=== PATIENT | female | born 1990 | race Caucasian/White ===

== ENCOUNTER → 2019-10-03 11:51 | Outpatient (BNVA) | payer SELFPAY | PROVIDERS: Family Provider Nurse Practitioner; PCP Nurse Practitioner; Visit Provider Nurse Practitioner | DX: D64.9 Anemia, unspecified (principal); J06.9 Acute upper respiratory infection, unspecified | CPT/HCPCS: 85025 ==

== ENCOUNTER → 2020-02-19 11:16 | Outpatient (BNVA) | payer SELFPAY | PROVIDERS: Family Provider Nurse Practitioner; PCP Nurse Practitioner; Visit Provider Nurse Practitioner Women's Health | DX: N93.9 Abnormal uterine and vaginal bleeding, unspecified (principal); Z12.4 Encounter for screening for malignant neoplasm of cervix | CPT/HCPCS: 84146; 84443; 84702; 85025; 88175 ==

== ENCOUNTER → 2020-03-08 14:25 | Outpatient (BNVA) | payer SELFPAY | PROVIDERS: Family Provider Nurse Practitioner; PCP Nurse Practitioner; Visit Provider Nurse Practitioner Women's Health | DX: N93.9 Abnormal uterine and vaginal bleeding, unspecified (principal) | CPT/HCPCS: 76830 ==

== ENCOUNTER → 2020-03-11 09:00 | Outpatient (BNVA) | payer SELFPAY | PROVIDERS: Family Provider Nurse Practitioner; PCP Nurse Practitioner; Visit Provider Nurse Practitioner Women's Health | DX: D64.9 Anemia, unspecified (principal); N93.9 Abnormal uterine and vaginal bleeding, unspecified; N85.2 Hypertrophy of uterus | CPT/HCPCS: 82728; 83550 ==

== ENCOUNTER → 2020-05-24 08:51 | Outpatient (BNVA) | payer SELFPAY | PROVIDERS: Family Provider Nurse Practitioner; PCP Nurse Practitioner; Visit Provider Nurse Practitioner Women's Health | DX: N85.2 Hypertrophy of uterus (principal) | CPT/HCPCS: 76830 ==

== ENCOUNTER → 2020-07-12 09:52 | Outpatient (BNVA) | payer SELFPAY | PROVIDERS: Family Provider Nurse Practitioner; PCP Nurse Practitioner; Visit Provider Nurse Practitioner Women's Health | DX: N85.2 Hypertrophy of uterus (principal); N93.9 Abnormal uterine and vaginal bleeding, unspecified; D64.9 Anemia, unspecified | CPT/HCPCS: 85025 ==

== ENCOUNTER 2021-01-15 19:45 | Emergency (ER) | payer SELFPAY ==
[2021-01-15 19:47] VITALS: BP 133/77; PULSE 100; RESP 17; TEMP 36.7; O2SAT 98; BMI 40.4
--- NOTE | 2021-01-15 20:16 | ED_ITS ---
HPI - Nausea/Vomiting/Diarrhea General: Chief complaint: Nausea/Vomiting/Diarrhea Stated complaint: n/v Time Seen by Provider: 01/15/21 19:57 History of Present Illness: HPI Narrative: Patient ate some cereal this morning and then around 3:00 she sat down to watch a movie and had sudden onset of vomiting and diarrhea several times and was happening at the same time. She has some mid abdominal pain that is more of a crampy type sensation she denies any specific lower pain it appears to be more at the umbilicus. Denies any fevers and also initially started with a headache she does have a history of migraines but says that the migraine had resolved. 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 She denies any urine complaints denies Review of Systems Narrative: General: denies fatigue, fever or chills HEENT: denies ear pain, denies nasal congestion, denies vision changes, denies sore throat Neck: denies masses or pain Resp: denies cough, denies shortness of breath, denies pleuritic pain Cardio: denies chest pain, denies edema GI: see hpi denies black/tarry or bloody stools : denies hematuria, denies dysuria Neuro: denies headache, denies dizziness, denies motor or sensory changes Musculoskeletal: denies pain, denies swelling Skin: denies rashes Psych: denies SI or HI Endocrine: denies thyroid symptoms, denies lymphadenopathy all over ROS reviewed and patient denies PFSH ED PFSH: Medical History (Updated 01/15/21 @ 22:01 by Amber Don DO) Anemia Genital herpes Migraine without aura Surgical History History of section 2 sections 2010 2011 History of tubal ligation 2012 Family History Mother Hypertension Unknown Colon cancer Maternal side Diabetes Paternal side Denies family history of Ovarian cancer Heart disease Hyperlipidemia Breast cancer Family history of thyroid problem Uterine cancer Stroke Social History Additional social history: - Tobacco use: Denies Alcohol use: Social Drug use: Denies Female Reproductive History: Date of last menstrual period: 09/28/19 Para: 3 Physical Exam Narrative: EXAM NARRATIVE: General: a/o/3, no distress Head: atraumatic HEENT: normal eyes, normal conjunctiva, normal hearing, normal external nose, normal mouth, mucous membranes moist Neck: FROM, trachea midline Chest: normal expansion, no gross deformities Resp: normal speech, no retractions, no accessory muscle use, CTA bilaterally Cardio: regular rate and rhythm and no murmur, no peripheral edema, normal peripheral pulses GI: soft, mild mid tender, no guarding normal BS, no RLQ pain : deferred Musculoskeletal: FROM, no pain or gross deformities Neuro: a/o appropriate for age, no gross motor or sensory deficitys, CN II-XII grossly intact, normal coordination, normal speech Skin: no rashes Psych: cooperative, normal mood and effect Course Vital Signs: Vital signs: Vital Signs Temperature 98.1 F 01/15/21 19:47 Pulse Rate 90 01/15/21 21:25 Respiratory Rate 18 01/15/21 21:25 Blood Pressure 126/82 01/15/21 21:25 Pulse Oximetry 99 01/15/21 21:25 MDM - Nausea/Vomiting/Diarrhea MDM Narrative: Medical decision making narrative: Patient denies eating out recently or anybody else being ill in the house this did happen suddenly so would be curious if it is viral and/or some type of gastroenteritis. Her white count was elevated so we will check a CT scan. Patient had no vomiting here in the emergency department she was given IV fluids she was smiling and feeling better Tolerated crackers and ice chips Medical Records: Attestation: I reviewed the patient's medical records. Lab Data: Attestation: I reviewed the patient's lab results. Labs: Lab Results 01/15/21 01/15/21 01/15/21 Range/Units 20:10 20:20 20:20 WBC 22.7 H (4.0-10.0) 10^3/ uL RBC 5.49 H (4.1-5.3) 10^6/u L Hgb 15.4 H (11.5-15.3) g/dL Hct 48.3 H (37.0-47.0) % MCV 88.0 (81-99) fL MCH 28.1 (28.0-34.0) pg MCHC 31.9 (30.0-36.0) g/dL RDW 12.4 (12.1-15.1) % Plt Count 295 (130-400) 10^3/c mm MPV 11.6 H (7.4-10.4) fL Neut % (Auto) 84.7 % Lymph % (Auto) 8.6 % [place] % (Auto) 5.7 % Eos % (Auto) 0.2 % Baso % (Auto) 0.4 % Neut # (Auto) 19.19 H (1.8-7.7) 10^3/u L Lymph # (Auto) 2.0 (0.8-4.8) 10^3/u L [place] # (Auto) 1.3 H (0.2-0.9) 10^3/u L Eos # (Auto) 0.1 (0.0-0.8) 10^3/u L Baso # (Auto) 0.1 (0.0-0.1) 10^3/u L Nucleated RBC % (a uto) 0 % Nucleated RBCs # 0.0 /100WBC Sodium 139 (136-145) mmol/L Potassium 3.6 (3.5-5.1) mmol/L Chloride 102 (98-107) mmol/L Carbon Dioxide 26 (22-29) mmol/L Anion Gap 14.6 (5-19) BUN 12 (6-20) mg/dL Creatinine 0.8 (0.5-0.9) mg/dL GFR Calculation 84.2 L (90-130) mL/min Glucose 106 (65-115) mg/dL Calculated Osmolal ity 288 (285-295) mOsm/k g Calcium 8.9 (8.5-10.5) mg/dL Total Bilirubin 0.3 (0.15-1.2) mg/dL AST 22 (0-32) U/L ALT 29 (0-33) U/L Alkaline Phosphata se 22 L (35-105) IU/L Total Protein 7.7 (6.6-8.7) g/dL Albumin 4.3 (3.5-5.2) g/dL Globulin 3.4 (1.3-4.6) g/dL Lipase 21 (13-60) U/L HCG, Qual Negative (Negative) Discharge Plan Discharge Patient Disposition: Home Clinical Impression: Gastroenteritis Condition: Stable Prescriptions: No Action ibuprofen [IBU] 800 mg tablet 800 mg PO Q6H PRNRF: 0 norethindrone acetate 5 mg tablet 5 mg PO DAILY Qty: 30 RF: 11 clindamycin HCl 300 mg capsule 300 mg PO TID 7 Days Qty: 21 RF: 0 Discharge Orders: Discharge ED (Routine); Ordered 01/15/21 Ordered By: Amber Don Referrals: Maryanne Puga, [employer] [Primary Care Provider] - Discharge Diet: Advance as tolerated and Clear Liquid Discharge Activity: Increase activity as tolerated Patient Instructions: Gastroenteritis (ED), Opioid Safety Activity Restrictions/Additional Instructions: Advance your diet as tolerated I would go with more clear liquids and some crackers for the next 12 to 24 hours return if you have increased pain if pain moves to the right lower quadrant vomiting worsening of symptoms you feel weak or dizzy fevers Thank you for choosing [facility] for your healthcare needs today. Please realize this is an emergency room and that we are providing you with a medical screening exam and this may not be complete and all inclusive of all the testing and or work up that you may need to determine your ailment or severity of your illness. It is very important that you follow up as instructed or that you return to the Emergency Department should you have concerns or if your condition changes or worsens in any way. Stand Alone Forms: Work/School Release Coding Level of Care Code ED Rn Lactation Consultant for Alisa Hernandez
[2021-01-15 20:28] LABS: HCG Qualitative Urine. Negative (Negative)
[2021-01-15] MEDS: sodium chloride 0.9% 1,000 ML 999 ML IV (20:28)
[2021-01-15] MEDS: ondansetron 2 mg/ML SDV 2 mL 4 MG IVP (20:28)
[2021-01-15 20:30] VITALS: BP 129/81; PULSE 108; RESP 18; O2SAT 99
[2021-01-15 20:30] LABS: Basophils # 0.1 10^3/uL (0.0-0.1); Basophils % 0.4 %; Eosinophils # 0.1 10^3/uL (0.0-0.8); Eosinophils % 0.2 %; Hematocrit 48.3 % (37.0-47.0); Hemoglobin 15.4 g/dL (11.5-15.3); Lymphocytes % 8.6 %; Mean Corpuscular HGB Conc 31.9 g/dL (30.0-36.0); Mean Corpuscular Hemoglobin 28.1 pg (28.0-34.0); Mean Platelet Volume 11.6 fL (7.4-10.4); Monocytes # 1.3 10^3/uL (0.2-0.9); Monocytes % 5.7 %; Neutrophils # 19.19 10^3/uL (1.8-7.7); Neutrophils % 84.7 %; Nucleated Red Blood Cells % 0 %; Platelet Count 295 10^3/cmm (130-400); Red Blood Count 5.49 10^6/uL (4.1-5.3); Red Cell Distribution Width 12.4 % (12.1-15.1); White Blood Count 22.7 10^3/uL (4.0-10.0)
--- NOTE | 2021-01-15 20:31 | CTR_ITS ---
PROCEDURE INFORMATION: Exam: CT Abdomen And Pelvis With Contrast Exam date and time: 01/15/2021 8:47 PM Age: 30 years old Clinical indication: Nausea and vomiting; Prior surgery; Surgery date: 6+ months; Surgery type: C-sect; Patient HX: C/O n/v/d; Additional info: Mid abd pain , vomiting, diarrhea TECHNIQUE: Imaging protocol: Computed tomography of the abdomen and pelvis with contrast. Radiation optimization: All CT scans at this facility use at least one of these dose optimization techniques: automated exposure control; mA and/or kV adjustment per patient size (includes targeted exams where dose is matched to clinical indication); or iterative reconstruction. Contrast material: OMNI 300; Contrast volume: 95 ml; Contrast route: INTRAVENOUS (IV); COMPARISON: CT abdomen pelvis wo con [id number] 11/21/2018 2:27 PM RADIATION DOSE METRICS: Total DLP (mGy-cm): 1804.42 FINDINGS: Liver: Normal. No mass. Gallbladder and bile ducts: Normal. No calcified stones. No ductal dilation. Pancreas: Normal. No ductal dilation. Spleen: Normal. No splenomegaly. Adrenal glands: Normal. No mass. Kidneys and ureters: Normal. No hydronephrosis. Stomach and bowel: Prominent fluid in the small bowel and colon without dilation suggestive of an enterocolitis. Appendix: No evidence of appendicitis. Intraperitoneal space: Unremarkable. No free air. No significant fluid collection. Vasculature: Unremarkable. No abdominal aortic aneurysm. Lymph nodes: Unremarkable. No enlarged lymph nodes. Urinary bladder: Unremarkable as visualized. Reproductive: Left ovary 2 cm cyst likely follicular in nature. Bones/joints: L5 vertebral body hemangioma. Soft tissues: Unremarkable. CT/CT abdomen pelvis w con* [id number] IMPRESSION: 1. Prominent fluid in the small bowel and colon without dilation suggestive of an enterocolitis. 2. L5 vertebral body hemangioma. 3. Left ovary 2 cm cyst likely follicular in nature. Radiation Dose CTDIVOL = (mGy): DLP = 1804.42 (mGy-cm)
[2021-01-15 20:47] LABS: Alanine Aminotransferase 29 U/L (0-33); Albumin Level 4.3 g/dL (3.5-5.2); Alkaline Phosphatase 22 IU/L (35-105); Anion Gap 14.6 (5-19); Aspartate Amino Transferase 22 U/L (0-32); Blood Urea Nitrogen 12 mg/dL (6-20); Calcium 8.9 mg/dL (8.5-10.5); Carbon Dioxide 26 mmol/L (22-29); Chloride 102 mmol/L (98-107); Globulin 3.4 g/dL (1.3-4.6); Glomerular Filtration Rate 84.2 mL/min (90-130); Glucose 106 mg/dL (65-115); Lipase 21 U/L (13-60); Osmolality Calculated 288 mOsm/kg (285-295); Potassium 3.6 mmol/L (3.5-5.1); Sodium 139 mmol/L (136-145); Total Bilirubin 0.3 mg/dL (0.15-1.2); Total Protein 7.7 g/dL (6.6-8.7)
[2021-01-15] MEDS: iohexol 300 mg/mL 100 mL Btl IV (21:06)
[2021-01-15 21:25] VITALS: BP 126/82; PULSE 90; RESP 18; O2SAT 99
[2021-01-15 22:02] LABS: Bilirubin Urine 1+ (Negative); Blood Urine 2+ (Negative); Glucose Urine UA Norm (Normal); Ketones Urine 1+ (Negative); Leukocyte Esterase Urine Negative (Negative); Nitrate Urine Negative (Negative); Protein Urine Trace (Negative); Urine Color Yellow (Yellow); Urobilinogen Urine 1 mg/dL (Negative); pH Urine 5 (5-7)
[2021-01-15 22:25] LABS: Bacteria Urine 4+ /hpf; Calcium Oxalate Crystals Urine 15-25 /hpf; Mucus Urine 2+ /hpf; RBC Urine 0-4 /hpf (0-2); Squamous Epithelial Cell Urine 25-40 /hpf (0-5); WBC Urine 0-4 /hpf (0-5)
[2021-01-15 22:26] LABS: Add Urine Culture? No; Amorphous Sediment Urine 3+ /hpf
[2021-01-15] MEDS: dicyclomine 10 mg Capsule 20 MG PO (22:35)
[2021-01-15] MEDS: promethazine 25 mg Tablet PO (22:35)
[2021-01-15 22:39] VITALS: BP 127/79; PULSE 89; RESP 16
== END 2021-01-15 22:40 | disposition home or self-care (01) ==
PROVIDERS: Emergency Provider Emergency Medicine; PCP Nurse Practitioner
DX: K52.9 Noninfective gastroenteritis and colitis, unspecified (principal)
CPT/HCPCS: 74177; 80053; 81001; 81025; 83690; 85025; 96374; 96375; 99284; J2405; J7030; Q0169; Q9967

== ENCOUNTER → 2021-01-21 10:44 | Outpatient (BNVA) | payer SELFPAY | PROVIDERS: PCP Nurse Practitioner; Visit Provider Nurse Practitioner Family | DX: R30.0 Dysuria (principal); R82.90 Unspecified abnormal findings in urine; N30.01 Acute cystitis with hematuria | CPT/HCPCS: 81000; 87077; 87086; 87184 ==

== ENCOUNTER → 2021-01-28 09:08 | Outpatient (BNVA) | payer SELFPAY | PROVIDERS: PCP Nurse Practitioner; Visit Provider Nurse Practitioner Family | DX: N39.0 Urinary tract infection, site not specified (principal) | CPT/HCPCS: 81000 ==

== ENCOUNTER → 2021-03-02 16:08 | Outpatient (BNVA) | payer SELFPAY | PROVIDERS: PCP Nurse Practitioner; Visit Provider Nurse Practitioner Family | DX: M25.539 Pain in unspecified wrist (principal); M25.639 Stiffness of unspecified wrist, not elsewhere classified; M25.431 Effusion, right wrist; M25.631 Stiffness of right wrist, not elsewhere classified; M25.531 Pain in right wrist | CPT/HCPCS: 73110 ==

== ENCOUNTER 2021-10-21 12:40 | Outpatient (CLI) | payer SELFPAY ==
--- NOTE | 2021-10-21 12:49 | XR_ITS ---
WS: [id number] ABDOMEN 1 VIEW(S) HISTORY: LEFT flank pain for 5 days. Hematuria. COMPARISON: CT abdomen and pelvis 01/15/2021 Normal bowel gas pattern. No suspicious calcifications or masses. No bone abnormality. XR/XR KUB [id number] IMPRESSION: Normal abdomen. No suspicious calcifications along the course of the LEFT urete r.
== END 2021-10-21 12:41 | disposition home or self-care (01) ==
LOC: RAD 12:47
PROVIDERS: PCP Nurse Practitioner; Visit Provider Nurse Practitioner
DX: R10.9 Unspecified abdominal pain (principal)
CPT/HCPCS: 74018; 81000

== ENCOUNTER → 2022-04-07 15:35 | Outpatient (BNVA) | payer SELFPAY | PROVIDERS: PCP Nurse Practitioner; Visit Provider Nurse Practitioner Women's Health | DX: N93.9 Abnormal uterine and vaginal bleeding, unspecified (principal) | CPT/HCPCS: 85025 ==

== ENCOUNTER → 2022-08-21 16:51 | Outpatient (BNVA) | payer SELFPAY | PROVIDERS: PCP Nurse Practitioner; Visit Provider Nurse Practitioner | DX: R10.9 Unspecified abdominal pain (principal) | CPT/HCPCS: 80053; 81000; 85025 ==

== ENCOUNTER 2022-09-05 12:47 | Emergency (ER) | payer SELFPAY ==
[2022-09-05] VITALS (7 sets, daily range): BP systolic 128–159; BP diastolic 61–82; PULSE 85–110; RESP 16–18; TEMP 37.4; O2SAT 94–98
--- NOTE | 2022-09-05 15:57 | CTR_ITS ---
PROCEDURE INFORMATION: Exam: CT Abdomen And Pelvis Without Contrast Exam date and time: 09/05/2022 4:55 PM Age: 32 years old Clinical indication: Other: Left pelvic; Prior surgery; Surgery date: 6+ months; Surgery type: Tubal, ; Patient HX: Left side pain x several weeks worsening in intensity; Additional info: Kidney stone TECHNIQUE: Imaging protocol: Computed tomography of the abdomen and pelvis without contrast. Sagittal and coronal reformatted images were created and reviewed. Radiation optimization: All CT scans at this facility use at least one of these dose optimization techniques: automated exposure control; mA and/or kV adjustment per patient size (includes targeted exams where dose is matched to clinical indication); or iterative reconstruction. COMPARISON: CT abdomen pelvis w con* [id number] 01/15/2021 9:04 PM RADIATION DOSE METRICS: Total DLP (mGy-cm): 562.88 FINDINGS: Limitations: Evaluation of solid organs and vasculature is limited without intravenous contrast. This is standard protocol for evaluation of possible urolithiasis. Lungs: Dependent atelectasis in the visualized lungs. Pleural spaces: No pleural effusion. Heart: Visualized cardiac chambers are unremarkable. Liver: The liver is unremarkable. Gallbladder and bile ducts: The gallbladder is unremarkable. No biliary ductal dilatation. Pancreas: The pancreas is unremarkable. No pancreatic ductal dilatation. Spleen: The spleen is unremarkable. Adrenal glands: The right and left adrenal glands are unremarkable. Kidneys and ureters: The right and left kidneys are unremarkable. The right and left ureters are unremarkable. No hydroureteronephrosis. No calcified urolithiasis. Stomach and bowel: Fluid within the small bowel and colon without evidence of bowel wall thickening. Appendix: The appendix is visualized and is unremarkable. No findings to suggest acute appendicitis. Intraperitoneal space: Small amount of free fluid in the cul-de-sac. No free intraperitoneal air. No loculated fluid collections to suggest an abscess. Vasculature: No evidence for aortic aneurysm. Lymph nodes: No lymphadenopathy. Urinary bladder: Unremarkable as visualized. Reproductive: The uterus is unremarkable. The right ovary is unremarkable. Stable dominant follicle in the left ovary measuring 1.7 x 1.3 cm (series 4, image 196). Bones/joints: Mild degenerative changes in the visualized spine. There is a vertebral body hemangioma at L5. Soft tissues: No acute abnormality in the extra-abdominal soft tissues. CT/CT abdomen pelvis wo con [id number] IMPRESSION: 1. Fluid within the small bowel and colon without evidence of bowel wall thickening. This may reflect viral gastroenteritis in the appropriate clinical situation. 2. Stable dominant follicle in the left ovary. 3. Small amount of free fluid in the cul-de-sac. 4. Incidental/nonacute findings are listed in the report.
[2022-09-05] MEDS: ondansetron 2 mg/ML SDV 2 mL 4 MG IVP (16:14)
[2022-09-05 16:15] LABS: Basophils % 0.1 %; Eosinophils % 0.1 %; Hematocrit 43.9 % (37.0-47.0); Hemoglobin 14.4 g/dL (11.5-15.3); Lymphocytes # 0.9 10^3/uL (0.8-4.8); Lymphocytes % 7.9 %; Mean Corpuscular HGB Conc 32.8 g/dL (30.0-36.0); Mean Corpuscular Hemoglobin 28.2 pg (28.0-34.0); Mean Corpuscular Volume 86.1 fl (81-99); Monocytes # 0.5 10^3/uL (0.2-0.9); Monocytes % 4.2 %; Neutrophils # 9.46 10^3/uL (1.8-7.7); Neutrophils % 87.4 %; Nucleated Red Blood Cells % 0 %; Platelet Count 237 10^3/cmm (130-400); Red Cell Distribution Width 12.3 % (12.1-15.1); White Blood Count 10.8 10^3/uL (4.0-10.0)
[2022-09-05] MEDS: ketorolac 30 mg/mL INJ IVP (16:15)
--- NOTE | 2022-09-05 16:15 | W.ED.ABDPA2 ---
HPI - Abdominal Pain General: Chief Complaint: Abdominal Pain Stated Complaint: abd pain Time Seen by Provider: 09/05/22 15:45 History of Present Illness: 30-year-old female who presents 2-day history of left flank pain. She describes the pain as sharp and stabbing, radiating into the left upper abdomen and left lower quadrant area. She has had onset of nausea and vomiting this morning, vomited multiple times today. She is also developed a low-grade fever today in addition. She denies dysuria or hematuria. No prior history of kidney stones. No diarrhea. Bowel movements have been normal. Associated Symptoms: Reports diarrhea, nausea and vomiting; Denies change in bowel habits, dysuria, heartburn, hematochezia and hematuria Related Data: Date of Last Menstrual Period: 08/10/22 Review of Systems Const: Denies: body aches, change in appetite, fatigue or change in sleep pattern Eyes: Denies: change in vision ENMT: Denies: odynophagia, hoarseness, nasal congestion or post nasal drip Card: Denies: chest pain or swelling of feet/ankles Resp: Denies: dyspnea, productive cough or non-productive cough GI: Reports: abdominal pain, nausea, vomiting and diarrhea; Denies: dysphagia, heartburn, change in bowel habits or hematochezia : Reports: urinary frequency and dysmenorrhea (with heavy flow); Denies: difficulty voiding, dysuria or hematuria Musc: Reports: other (left side ); Denies: neck pain, back pain or joint stiffness Skin/Breast: Denies: rash or pruritus Neuro: Denies: headache(s), difficulty walking or dizziness Psych: Denies: anxiety, depression, irritability or suicidal ideation Endo: Denies: hot flashes [place]/Lymph: Denies: easy bruising or enlarged lymph nodes All/Imm: Denies: seasonal rhinorrhea PFSH ED PFSH: Medical History Anemia Genital herpes Migraine without aura No pertinent past medical history Neg. hx: HTN, DM, thyroid, DVT/PE PCP: Surgical History History of section 2 sections 2010 2011 History of tubal ligation 2012 Family History Mother Hypertension Stroke Unknown Colon cancer Maternal side Diabetes Paternal side Grandmother Diabetes Paternal Denies family history of Ovarian cancer Heart disease Hyperlipidemia Breast cancer Family history of thyroid problem Uterine cancer Social History Smoking and tobacco status: never smoked Second hand smoke exposure: No Smoking risk assessment/counseling performed?: No Alcohol intake: unknown Desire information about alcohol rehabilitation?: No Counseling given: No Desire information about substance/drug rehabilitation?: No Counseling given: No Adopted: No Caregiver/support person: No Lives independently: Yes Household members: spouse and children Housing: House Marital status: Number of children: 3 service: No Current occupational status: employed Current occupation: [employer] Pets and animals: Yes Pets & animals: dog(s) History of recent travel: No Current gender identity: Female Female Reproductive History: Date of last menstrual period: 08/10/22 Para: 3 Physical Exam Const: GENERAL APPEARANCE: cooperative and well kempt NUTRITIONAL APPEARANCE: obese (BMI 38.4%) ORIENTATION/CONSCIOUSNESS: Yes oriented to person, Yes oriented to place and Yes oriented to time HENMT: COMMON NORMALS: external ears normal and Normal nasal mucous membranes and turbinates present NOSE: Normal nasal mucous membranes and turbinates present and No nasal discharge present GENERAL EAR: hearing not grossly impaired EXTERNAL EAR: Yes external ears normal MOUTH: Normal oral and palatal mucosa present Eye: COMMON NORMALS: Equal, round and reactive pupils present and conjunctivae normal EYELID: eyelids normal CONJUNCTIVA: Yes conjunctivae normal PUPIL: Yes Equal, round and reactive pupils present Neck/C-Spine: COMMON NORMALS: Thyroid normal GENERAL: Yes normal visual inspection THYROID: Thyroid normal CERVICAL SPINE: Yes cervical ROM normal Lymph: LYMPHATIC: no lymphadenopathy noted Chest: CHEST: Yes Symmetrical chest wall rise Resp: COMMON NORMALS: clear to auscultation bilaterally EFFORT & INSPECTION: Yes able to speak in complete sentences AUSCULTATION: clear to auscultation bilaterally Cardio: COMMON NORMALS: regular rhythm and No murmurs present (Cardio) RATE: tachycardic RHYTHM: regular rhythm HEART SOUNDS: no murmurs GI: COMMON NORMALS: Soft to palpation AUSCULTATION: Yes normoactive bowel sounds PALPATION: Yes Soft to palpation and Yes Tenderness to palpation present (GI) (Tenderness in the left upper and left lower quadrants as well as left CVA t) : BLADDER/KIDNEY EXAM: Yes CVA tenderness on the left Back/Pelvis: GENERAL BACK: Yes CVA tenderness THORACIC SPINE/UPPER BACK: Yes normal to inspection LUMBAR SPINE/LOWER BACK: Yes normal to inspection Extremity: GENERAL: No edema and Yes other findings (Equal strength and range of motion.) Neuro: SENSORIUM/ORIENTATION: Yes oriented to person, Yes oriented to place and Yes oriented to time SPEECH: speech normal GAIT: Yes Normal gait present Psych: COMMON NORMALS: speech normal APPEARANCE: Yes well kempt ATTITUDE: Yes engaged SPEECH: Yes normal speech MOOD & AFFECT: No irritable THOUGHT CONTENT: No Suicidality present and No Homicidality present Skin: GENERAL SKIN EXAM: no ecchymo and no erythema Course ED course: After IV fluids, morphine, Toradol and Zofran, the patient is feeling significantly better. She is tolerating p.o. fluids. On laboratory evaluation, she does have a leukocytosis with a white blood cell count of 10.8. Sodium is 134, potassium 3.2, chloride 99, CO2 is 24. BUN 11, creatinine 0.6. LFTs are normal. Urinalysis is negative for UTI. CT scan shows changes consistent with probably gastroenteritis but no ureteral stones or other intra-abdominal abnormalities. Suspect that the patient's pain is more likely related to gastroenteritis. Do not feel that she needs further imaging studies. She is p.o. challenged and tolerated p.o. fluids and stable for discharge home. Vital Signs: Vital signs: Vital Signs Temperature 99.4 F 09/05/22 14:10 Pulse Rate 98 09/05/22 18:00 Respiratory Rate 18 09/05/22 16:16 Blood Pressure 138/64 09/05/22 18:30 Pulse Oximetry 98 09/05/22 18:30 Oxygen Delivery Me thod 09/05/22 18:30 MDM - Abdominal Pain Medical Decision Making 30-year-old female who comes in with left upper quadrant and left flank pain which she has had for the past 24 to 48 hours. She had associated nausea and vomiting today. Differential includes musculoskeletal pain, pyelonephritis, ureteral colic, gastroenteritis, constipation. Will start on IV, obtain labs and give her IV fluids. We will obtain a CT scan for renal colic to evaluate for kidney stones. We will give her IV Zofran for nausea, morphine and Toradol for pain. Lab Data 09/05/22 15:55 09/05/22 15:55 Labs/Radiology: Radiology Impressions Abdomen/Pelvis CT 09/05/22 15:57 IMPRESSION: 1. Fluid within the small bowel and colon without evidence of bowel wall thickening. This may reflect viral gastroenteritis in the appropriate clinical situation. 2. Stable dominant follicle in the left ovary. 3. Small amount of free fluid in the cul-de-sac. 4. Incidental/nonacute findings are listed in the report. Laboratory Results WBC 10.8 10^3/uL (4.0-10.0) H 09/05/22 15:55 RBC 5.10 10^6/uL (4.1-5.3) 09/05/22 15:55 Hgb 14.4 g/dL (11.5-15.3) 09/05/22 15:55 Hct 43.9 % (37.0-47.0) 09/05/22 15:55 MCV 86.1 fl (81-99) 09/05/22 15:55 MCH 28.2 pg (28.0-34.0) 09/05/22 15:55 MCHC 32.8 g/dL (30.0-36.0) 09/05/22 15:55 RDW 12.3 % (12.1-15.1) 09/05/22 15:55 Plt Count 237 10^3/cmm (130-400) 09/05/22 15:55 MPV 11.0 fL (7.4-10.4) H 09/05/22 15:55 Neut % (Auto) 87.4 % 09/05/22 15:55 Lymph % (Auto) 7.9 % 09/05/22 15:55 [place] % (Auto) 4.2 % 09/05/22 15:55 Eos % (Auto) 0.1 % 09/05/22 15:55 Baso % (Auto) 0.1 % 09/05/22 15:55 Neut # (Auto) 9.46 10^3/uL (1.8-7.7) H 09/05/22 15:55 Lymph # (Auto) 0.9 10^3/uL (0.8-4.8) 09/05/22 15:55 [place] # (Auto) 0.5 10^3/uL (0.2-0.9) 09/05/22 15:55 Eos # (Auto) 0.0 10^3/uL (0.0-0.8) 09/05/22 15:55 Baso # (Auto) 0.0 10^3/uL (0.0-0.1) 09/05/22 15:55 Nucleated RBC % (auto) 0 % 09/05/22 15:55 Nucleated RBCs # 0.0 /100WBC 09/05/22 15:55 Sodium 134 mmol/L (136-145) L 09/05/22 15:55 Potassium 3.7 mmol/L (3.5-5.1) 09/05/22 15:55 Chloride 99 mmol/L (98-107) 09/05/22 15:55 Carbon Dioxide 24 mmol/L (22-29) 09/05/22 15:55 Anion Gap 14.7 (5-19) 09/05/22 15:55 BUN 11 mg/dL (6-20) 09/05/22 15:55 Creatinine 0.6 mg/dL (0.5-0.9) 09/05/22 15:55 GFR Calculation 115.9 mL/min (90-130) 09/05/22 15:55 Glucose 102 mg/dL (65-115) 09/05/22 15:55 Calculated Osmolality 278 mOsm/kg (285-295) L 09/05/22 15:55 Calcium 8.8 mg/dL (8.5-10.5) 09/05/22 15:55 Total Bilirubin 0.8 mg/dL (0.15-1.2) 09/05/22 15:55 AST 14 U/L (0-32) 09/05/22 15:55 ALT 15 U/L (0-33) 09/05/22 15:55 Alkaline Phosphatase 27 U/L (35-105) L 09/05/22 15:55 Total Protein 7.7 g/dL (6.6-8.7) 09/05/22 15:55 Albumin 4.2 g/dL (3.5-5.2) 09/05/22 15:55 Globulin 3.5 g/dL (1.3-4.6) 09/05/22 15:55 Lipase 16 U/L (13-60) 09/05/22 15:55 HCG, Qual Negative (Negative) 09/05/22 15:55 Urine Color [place] (Yellow) 09/05/22 15:55 Urine Appearance Clear (CLEAR) 09/05/22 15:55 Urine pH 6 (5-7) 09/05/22 15:55 Ur Specific [place] 1.020 (1.005-1.030) 09/05/22 15:55 Urine Protein Neg (Negative) 09/05/22 15:55 Urine Glucose (UA) Norm (Normal) 09/05/22 15:55 Urine Ketones Negative (Negative) 09/05/22 15:55 Urine Blood Trace (Negative) H 09/05/22 15:55 Urine Nitrate Negative (Negative) 09/05/22 15:55 Urine Bilirubin Neg (Negative) 09/05/22 15:55 Urine Urobilinogen Norm mg/dL (Negative) 09/05/22 15:55 Ur Leukocyte Esterase Negative (Negative) 09/05/22 15:55 Urine RBC None /hpf (0-2) 09/05/22 15:55 Urine WBC 0-4 /hpf (0-5) H 09/05/22 15:55 Ur Squamous Epith Cells 5-10 /hpf (0-5) H 09/05/22 15:55 Amorphous Sediment Not Reportable 09/05/22 15:55 Urine Bacteria 4+ /hpf (NONE) H 09/05/22 15:55 Discharge Plan Discharge Patient Disposition: Home Clinical Impression: Gastroenteritis, Abdominal pain Condition: Stable Prescriptions: New dicyclomine 20 mg tablet 20 mg PO QID Qty: 20 0RF promethazine 25 mg tablet 25 mg PO Q4H PRN (Reason: nausea and vomiting) Qty: 20 0RF Discharge Orders: Discharge ED (Routine); Ordered 09/05/22 Ordered By: Milagros Woodson Referrals: Maryanne Puga FNP-C [Primary Care Provider] - Patient Instructions: Gastroenteritis (DC), Abdominal Pain (ED), Opioid Safety, Pain Management Activity Restrictions/Additional Instructions: Take the Phenergan every 4-6 hours as needed for nausea and vomiting. You can take the Bentyl 4 times daily as needed for pain and cramping. Tylenol and/or ibuprofen as needed for fever. Start with clear liquids. If you tolerate clear liquids, you can advance your diet to a bland diet. Avoid milk products until your symptoms have resolved. Return if you have increased pain, persistent fever or persistent vomiting. You can take Imodium 4 times daily as needed for diarrhea. Stand Alone Forms: Work/School Release Coding Level of Care Code ED Runstitching Machine Operator for Alisa Fwd Exam Comprehensive
[2022-09-05] MEDS: morphine 4 mg/mL SDV 1 mL IVP (16:16)
[2022-09-05] MEDS: sodium chloride 0.9% 1,000 ML 999 ML IV (16:19)
[2022-09-05 16:31] LABS: Add Urine Microscopic? YES; Bilirubin Urine Neg (Negative); Blood Urine Trace (Negative); Glucose Urine UA Norm (Normal); Ketones Urine Negative (Negative); Leukocyte Esterase Urine Negative (Negative); Nitrate Urine Negative (Negative); Protein Urine Neg (Negative); Urine Appearance Clear (CLEAR); Urine Color Amber (Yellow); Urobilinogen Urine Norm (Negative); WBC Urine 0-4 /hpf (0-5); pH Urine 6 (5-7)
[2022-09-05 16:32] LABS: Add Urine Culture? Yes; Alanine Aminotransferase 15 U/L (0-33); Albumin Level 4.2 g/dL (3.5-5.2); Alkaline Phosphatase 27 U/L (35-105); Anion Gap 14.7 (5-19); Aspartate Amino Transferase 14 U/L (0-32); Bacteria Urine 4+ /hpf; Blood Urea Nitrogen 11 mg/dL (6-20); Calcium 8.8 mg/dL (8.5-10.5); Carbon Dioxide 24 mmol/L (22-29); Chloride 99 mmol/L (98-107); Globulin 3.5 g/dL (1.3-4.6); Glomerular Filtration Rate 115.9 mL/min (90-130); Glucose 102 mg/dL (65-115); Lipase 16 U/L (13-60); Osmolality Calculated 278 mOsm/kg (285-295); Potassium 3.7 mmol/L (3.5-5.1); Sodium 134 mmol/L (136-145); Total Bilirubin 0.8 mg/dL (0.15-1.2); Total Protein 7.7 g/dL (6.6-8.7)
[2022-09-05 16:35] LABS: HCG Qualitative Urine. Negative (Negative)
== END 2022-09-05 19:33 | disposition home or self-care (01) ==
PROVIDERS: Nurse Practitioner Family; Emergency Provider Emergency Medicine; PCP Nurse Practitioner
DX: K52.9 Noninfective gastroenteritis and colitis, unspecified (principal)
CPT/HCPCS: 74176; 80053; 81001; 81025; 83690; 85025; 87086; 96361; 96374; 96375; 99285; J1885; J2270; J2405; J7030

== ENCOUNTER → 2023-10-18 13:44 | Outpatient (BNVA) | payer BC, SELFPAY | PROVIDERS: PCP Nurse Practitioner; Visit Provider Nurse Practitioner | DX: F41.9 Anxiety disorder, unspecified (principal); N83.209 Unspecified ovarian cyst, unspecified side; Z13.6 Encounter for screening for cardiovascular disorders; Z30.41 Encounter for surveillance of contraceptive pills; E66.9 Obesity, unspecified | CPT/HCPCS: 80053; 80061 ==

== ENCOUNTER → 2024-06-19 09:59 | Outpatient (BNVA) | payer BC, SELFPAY | PROVIDERS: PCP Nurse Practitioner; Visit Provider Nurse Practitioner | DX: I10 Essential (primary) hypertension | CPT/HCPCS: 74018; 80053; 81000; 84443; 85025 ==

== ENCOUNTER → 2024-11-18 09:47 | Outpatient (BNVA) | payer BC, SELFPAY | PROVIDERS: PCP Nurse Practitioner; Visit Provider Nurse Practitioner | DX: I10 Essential (primary) hypertension (principal) | CPT/HCPCS: 80053; 80061 ==

== ENCOUNTER → 2025-02-17 09:13 | Outpatient (BNVA) | payer BC, SELFPAY | PROVIDERS: PCP Nurse Practitioner; Visit Provider Nurse Practitioner | DX: Z12.4 Encounter for screening for malignant neoplasm of cervix (principal) | CPT/HCPCS: 88175 ==

== ENCOUNTER → 2025-08-03 09:03 | Outpatient (BNVA) | payer BC, SELFPAY | PROVIDERS: PCP Nurse Practitioner; Visit Provider Nurse Practitioner | DX: I10 Essential (primary) hypertension (principal) | CPT/HCPCS: 80053 ==